=== PATIENT | female | born 1975 | race Two or more races ===

== ENCOUNTER 2017-09-27 12:17 | Emergency (ER) | payer SELFPAY ==
[~2017-09-27] VITALS: Ht 160 cm; Wt 90.7 kg
[2017-09-27 12:20] VITALS: Ht 160 cm; Wt 90.7 kg
[2017-09-27 14:12] LABS: UA SPECIFIC GRAVITY 1.025 (1.005-1.035); microscopic required? YES; urine erythrocyte 3+ (NEGATIVE)
[2017-09-27 14:47] LABS: CALCIUM 8.4 mg/dL (8.5-10.1); CARBON DIOXIDE 27.8 mmol/L (21-32); CHLORIDE SERUM 104 mmol/L (98-107); CREATININE SERUM 0.6 mg/dL (0.6-1.0); GFR1 > 60 mL/min; GLUCOSE SERUM 107 mg/dL (74-106); POTASSIUM SERUM 3.7 mmol/L (3.5-5.1); SODIUM SERUM 139 mmol/L (136-145)
[2017-09-27 14:49] LABS: BASOPHIL % 0.5 % (0-2); PLATELET COUNT 349 x10^3mcL (130-400); RED CELL DISTRIBUTION WIDTH 13.5 % (11.5-14.5)
[2017-09-27 14:54] LABS: ALBUMIN 3.7 g/dL (3.4-5.0); ALKALINE PHOSPHATASE 83 U/L (46-116); ALT/SGPT 39 U/L (14-59); AMYLASE 52 U/L (25-115); AST/SGOT 24 U/L (15-37); BILIRUBIN TOTAL 0.8 mg/dL (0.20-1.00); LIPASE 87 IU/L (73-393)
[2017-09-27 16:01] VITALS: BP 130/79
== END 2017-09-27 16:01 | disposition home or self-care (01) ==
LOC: ED 12:17
PROVIDERS: Emergency Medicine
DX: B34.9 Viral infection, unspecified (principal); R11.10 Vomiting, unspecified; R42 Dizziness and giddiness
CPT/HCPCS: 83880; J1885; J2060; J2405; J7030; J8597